=== PATIENT | female | born 1965 | race Caucasian/White ===

== ENCOUNTER → 2023-11-18 07:11 | Outpatient (REF) | payer MEDICARE, OTHER, SELFPAY | LOC: RAD 07:11 | PROVIDERS: ATTENDING PHYSICIAN Otolaryngology Facial Plastic Surgery; FAMILY PHYSICIAN Internal Medicine Rheumatology | DX: J32.0 Chronic maxillary sinusitis (principal) | CPT/HCPCS: 70486 ==

== ENCOUNTER → 2024-04-14 07:21 | Outpatient (REF) | payer MEDICARE, OTHER, SELFPAY | LOC: WDC 07:21 | PROVIDERS: ATTENDING PHYSICIAN Advanced Practice Midwife; FAMILY PHYSICIAN Internal Medicine Rheumatology | DX: Z12.31 Encounter for screening mammogram for malignant neoplasm of breast (principal); Z80.3 Family history of malignant neoplasm of breast | CPT/HCPCS: 77063; 77067 ==

== ENCOUNTER 2024-06-15 13:56 | Emergency (ER) | payer MEDICARE, OTHER, SELFPAY ==
[2024-06-15 14:19] VITALS: BP 127/80
--- NOTE | 2024-06-15 15:56 | ED.GENMED ---
History of Present Illness
General
Chief Complaint: Musculo-Skeletal Complaint
Source: patient
Exam Limitations: none
Time Seen by Provider: 06/15/24 15:32
Nursing documentation reviewed up to this point in time: agreed with
History of Present Illness
History of Present Illness:
Patient is a 58-year-old female with history of SLE presenting to the emergency department for evaluation of left leg injury. Patient states that she was at the hair salon Thursday when she stood up from the chair and proceeded to fall to
the ground. Patient states that she did not lose consciousness or hit her head. Patient states that she has had significant pain in her left ankle following the fall and noticed swelling and bruising. She has been able to bear minimal weight,
although limping. Patient denies any preceding dizziness, lightheadedness, shortness of breath, or chest pain. She states that she has had similar episode in the past which her location and measurement technician does correlate to her lupus flares. Patient denies
sustaining any other injuries in the fall. Patient denies any acute changes in mental status or gait disturbances.
Past History
Past History
ED Past Medical History: Fibromyalgia and Other (Sjogrens syndrome, lupus, Migraines, )
ED Past Surgical History: ( X2 )
Social History
Tobacco: Non-smoker
Alcohol: None
Personal:
Living: with family
Review of Systems
Review of Systems
Allergies reviewed?: Yes
All Other Systems: ROS reviewed and negative except as documented in HPI and ROS
Phy Exam
Physical Exam
Physical Exam:
Vitals: Patient's vital signs are stable. Afebrile
General: Patient is well appearing, no acute distress
Skin: Warm and dry, scattered healing ecchymoses of bilateral lower extremities
Head: Normocephalic, atraumatic. No evidence of trauma
Eyes: Sclera nonicteric. EOMs intact. No nystagmus.
Throat: Protecting airway
Neck: Normal ROM, no cervical spine tenderness, no meningismus. No evidence of
Cardiac: Regular rate and rhythm, no murmurs.
Pulm: Normal respiratory effort, no wheezes, rales, rhonchi heard on exam.
Abdomen: No abdominal tenderness.
Extremities: Edema and ecchymoses of left ankle with tenderness just anterior to left lateral malleolus. Mild tenderness of lateral left foot. No tenderness at base of fifth metatarsal. No tenderness of left medial malleolus or calcaneus.
Achilles intact. Patient has limited ability to plantarflex/dorsiflex left ankle due to discomfort. No tenderness at head of left fibula. No tenderness of left tibia. Patient has full range of motion in left knee with no tenderness or edema.
Patient has palpable distal pulses in left lower extremity with great sensation. Bilateral upper extremities and right lower extremity atraumatic and nontender with full range of motion
Neuro: AAOx3. CN II-XII intact. No focal neurologic deficits.
Psychiatric: Normal affect.
Course
Orders/Labs/Results
Orders:
Orders
06/15/24 14:25
CR Ankle - Left Min 3 Views Urgent
Comment:
Reason For Exam: pain, swelling, bruising
CR Leg Tibia/fibula Left 2 Vw Urgent
Comment:
Reason For Exam: pain, swelling, bruising
Foot, Left 3 View [CR Foot - Left Min 3 Views] Urgent
Comment:
Reason For Exam: pain, swelling, bruising
06/15/24 15:56
Acetaminophen [Tylenol] 650 mg PO NOW STA
06/15/24 16:05
Ibuprofen [Motrin] 600 mg PO NOW STA
06/15/24 16:25
Ortho Boot Left- Treatment ONCE
Short or tall?: Tall
Vital Signs
Initial and Last Documented VS:
Initial Vital Signs
Temp Pulse Resp BP
98.0 F 83 16 127/80
06/15/24 14:19 06/15/24 14:19 06/15/24 14:19 06/15/24 14:19
Last Documented Vital Signs
Temp Pulse Resp BP
98.0 F 83 16 127/80
06/15/24 14:19 06/15/24 14:19 06/15/24 14:19 06/15/24 14:19
MDM/Problems Addressed
Differential Diagnosis Includes:
Not limited to: Ankle sprain, ankle fracture, foot sprain, foot fracture, leg fracture
MDM/Problems Addressed:
58-year-old female presenting with left lower extremity pain following fall 4 days ago. There was no associated head strike or loss of consciousness. Patient with pain in left foot, left ankle, left lower leg. No other complaints. Denies any
acute confusion or gait disturbances. Patient reports location and measurement technician aware of such episodes and states correlated with patient's lupus flares. Vital stable. Exam as above. Patient does have ecchymoses and edema of left ankle, worse around left
lateral malleolus. There is tenderness noted just anterior to left lateral malleolus. No tenderness at base of fifth metatarsal. Achilles intact. Left knee atraumatic and nontender with full range of motion. X-rays of left tibia/fibula, left
foot, and left ankle were obtained in triage. No evidence of acute fracture dislocation. Patient is alert and oriented with fluid speech. Patient has no neurological deficits on exam. No other traumatic injuries noted. Given location of pain
and edema�suspect likely ankle sprain. Given patient's history of sudden fall, not mechanical in nature�did offer lab tests and CT head�which patient declined and states is definitely related to lupus flare.
Will place patient in Ortho boot and refer to Ortho for follow-up needed. Patient will follow closely with rheumatology. Jose SOLANO. Return precaution discussed with patient at length. Patient comfortable with plan and stable for discharge.
Case discussed with attending physician
Chronic conditions affecting care:
SLE
Acute Exacerbation and/or Progression of Chronic Illness:
N/A
*Radiology
Radiology exam reviewed: preliminary read by ED provider and radiology read reviewed
*Pulse Oximetry
Patient hypoxic: no
*EKG
Interpreted by ED Provider?: NA
*Furniture Manager Interpretation
Rate: Furniture Manager- N/A
*Critical Care Note
Total Time (30-74mins, 75-104mins- exclusive of procedures): Not Applicable
ED Attending Note
-
Portions of this chart may have been created with voice recognition software.� Occasional wrong word or��sound alike� substitutions may have occurred due to the inherent limitations of voice recognition software.
Discharge Plan
Departure
Patient Disposition: Home (Routine Discharge)
Date of Disposition: 06/15/24
Time of Disposition: 16:35
Patient with high blood pressure during this ER visit?: No
Condition: Good
Discharge Problem:
Left ankle sprain, Sprain of left foot
Instructions: Ankle Sprain ED, Foot sprain
Prescriptions:
No Action
nabumetone 750 MG tablet
750 mg PO DAILY
baclofen 10 MG tablet
10 mg PO DAILY
folic acid 1 MG tablet
1 mg PO DAILY
hydroxychloroquine 200 MG tablet
200 mg PO DAILY
desipramine 10 MG tablet
10 mg PO DAILY
lutein 20 MG capsule
20 mg PO DAILY
atomoxetine [Strattera] 100 MG capsule
100 mg PO DAILY
linaclotide [Linzess] 290 MCG capsule
290 mcg PO DAILY
ascorbic acid-vitamin E-biotin [Hair, Skin, Nails with Biotin] 1 EACH tablet,chewable
1 ea PO DAILY
ergocalciferol (vitamin D2) 50 MCG capsule
50,000 mcg PO
Patient Comments:
mwf
levofloxacin 500 MG tablet
500 mg PO DAILY Qty: 7 0RF
methotrexate sodium 2.5 MG tablet
2.5 mg PO WEEKLY Qty: 0 0RF
rwxaddaudu-rsaorjqhiucis-kvym 1 TAB tablet
1 tab PO DAILY Qty: 10 0RF
meclizine 25 mg tablet
25 mg PO TID PRN (Reason: dizziness) Qty: 10 0RF
pantoprazole [Protonix] 40 mg tablet,delayed release (DR/EC)
40 mg PO DAILY Qty: 30 0RF
Referrals:
Pino Peace DO [Family Provider] -
Jamie Samuels MD [Active] - Follow up in 1 week
Activity Restrictions/Additional Instructions:
RETURN TO THE EMERGENCY DEPARTMENT WITH ANY HEADACHE, CHEST PAIN, SHORTNESS OF BREATH, DIZZINESS, RECURRENT FALLS, CHANGES IN MENTAL STATUS, NUMBNESS/TINGLING IN LEFT LEG, OR ANY OTHER CONCERNS
-As discussed�it is important to ice and elevate your left ankle as often as possible. Keep left leg in boot and weight-bear as tolerated. You can take Tylenol for any discomfort.
-As discussed�it is important that you follow-up with your location and measurement technician for further evaluation of your lupus.
Monitor your symptoms closely and return to the emergency department with any acute worsening/new symptoms
Interventions
Interventions:
*Risk Screen - Suicide Last Done: 06/15/24 15:31
*General Assessment Last Done: 06/15/24 15:31
*Neglect/Abuse Screening Last Done: 06/15/24 15:31
*ED COVID-19 Vaccine History Last Done: 06/15/24 15:31
*Nursing Disposition Last Done: 06/15/24 17:00
ED-Musculoskeletal Assessment Last Done: 06/15/24 15:33
Discharge Date and Time
Discharge Date/Time: 06/15/24 17:00
Print Language: SCOTTISH
[2024-06-15] MEDS: MOTRIN 600 MG PO (16:12)
== END 2024-06-15 17:00 | disposition home or self-care (01) ==
LOC: EMR 13:56
PROVIDERS: EMERGENCY PHYSICIAN Emergency Medicine; FAMILY PHYSICIAN Internal Medicine Rheumatology
DX: S93.402A Sprain of unspecified ligament of left ankle, initial encounter (principal); S93.602A Unspecified sprain of left foot, initial encounter; S90.02XA Contusion of left ankle, initial encounter; W19.XXXA Unspecified fall, initial encounter; Y92.89 Other specified places as the place of occurrence of the external cause; M32.9 Systemic lupus erythematosus, unspecified; M79.7 Fibromyalgia; M35.00 Sjogren syndrome, unspecified; G43.909 Migraine, unspecified, not intractable, without status migrainosus; Z88.3 Allergy status to other anti-infective agents; Z88.0 Allergy status to penicillin
CPT/HCPCS: 99283; 29515; 73590; 73610; 73630

== ENCOUNTER 2025-03-01 08:20 | Emergency (ER) | payer MEDICARE, OTHER, SELFPAY ==
[2025-03-01 08:25] VITALS: BP 124/83
[2025-03-01] MEDS: PERCOCET 5/325 1 TABLET PO (09:05)
--- NOTE | 2025-03-01 09:05 | ED.SKININJ ---
HPI-Injury
General
Chief Complaint: Bite
Source: patient
Exam Limitations: none
Time Seen by Provider: 03/01/25 08:47
History of Present Illness-Injury
Initial Injury comments:
59yo right hand dominant female with a history of lupus and fibromyalgia presenting with her for evaluation after a dog bite. Patient is dog sitting her son's dog. She gave him a milk bone this morning and pointed to the bone. The dog
thought she was taking the bone away and bit her in the right hand. She came immediately to the ED. She denies any paresthesias. Dog is up to date on rabies vaccinations and she is up to date on Tdap.
Past History
Past History
ED Past Medical History: Fibromyalgia and Other (Sjogrens syndrome, lupus, Migraines, )
ED Past Surgical History: ( X2 )
Social History
Tobacco: Non-smoker
Alcohol: None
Personal:
Living: with family
Phy Exam
General Physical Exam
General Presentation: well appearing and no apparent distress
General Skin: warm and dry
General Habitus: normal
General Mental: alert
ENT Exam
ENT Exam: normocephalic
Pulmonary Exam
Pulmonary Exam: no respiratory distress
Neurological Exam
Neurological Exam: alert
Musculoskeletal Exam
Musculoskeletal Exam: other (R hand: Multiple puncture wounds noted to the palm/thenar eminence. There is a large avulsion type laceration to the dorsal aspect of the hand at the base of the thumb that is unable to be completely closed. ROM of
fingers and wrist intact. 2+ radial pulse and sensation intact. )
Skin Exam
Skin Exam: normal color and warm/dry
Psychiatric Exam
Psychiatric Exam: normal mood/affect
Course
Orders/Labs/Results
Orders:
Orders
03/01/25 09:01
Oxycodone/Acetaminophen [Percocet 5/325] 1 tablet .ROUTE .STK-MED ONE
03/01/25 09:05
Oxycodone/Acetaminophen [Percocet 5/325] 1 tablet PO NOW STA
CR Hand - Right Min 3 Views Urgent
Comment:
Reason For Exam: dog bite
03/01/25 10:14
Doxycycline [Vibramycin] 100 mg PO NOW STA
MetroNIDAZOLE [Flagyl] 500 mg PO NOW STA
Vital Signs
Initial and Last Documented VS:
Initial Vital Signs
Temp Pulse Resp BP Pulse Ox
97.8 F 70 20 124/83 98
03/01/25 08:25 03/01/25 08:25 03/01/25 08:25 03/01/25 08:25 03/01/25 08:25
Last Documented Vital Signs
Temp Pulse Resp BP Pulse Ox
97.8 F 70 20 124/83 98
03/01/25 08:25 03/01/25 08:25 03/01/25 08:25 03/01/25 08:25 03/01/25 08:25
Procedures
Laceration Closure
Right Hand:
Status of Wound: clean
Size of Wound in cm: 6
Description of Wound Edges: ragged
Preparation: cleaned with saline
Anesthesia: 1% Lidocaine with epi
Revision/Debridement: minor revision
Wound exploration: extensive cleaning of contaminated wound and explored to base- no FB
Type of Closure: single layer closure
Skin Closure Material: 4-0 nylon
Number of sutures: 12
Additional information:
3 sutures placed to each of the two puncture wounds of palm. 6 sutures placed to larger laceration at base of thumb.
MDM/Problems Addressed
Differential Diagnosis Includes:
58yoF here after a dog bite to the R hand. Bitten by her son's dog. Animal UTD on shots. On exam, there are multiple puncture wounds with a large avulsion laceration to the dorsum of the hand. ROM intact and hand is neurovascularly intact. No
clinical evidence of tendon injury. Wounds irrigated extensively and repaired as above. Avulsion laceration unable to be completely closed due to the type of injury. Dressing applied. X-rays obtained which are negative for fractures. She was started
on doxycycline and Flagyl for prophylaxis (PCN allergy). Home wound care discussed. Patient advised to have sutures removed in 10-14 days and return to the ED immediately with any signs of infection. Patient discharged in stable condition.
*Critical Care Note
Total Time (30-74mins, 75-104mins- exclusive of procedures): Not Applicable
ED Attending Note
-
Portions of this chart may have been created with voice recognition software.� Occasional wrong word or��sound alike� substitutions may have occurred due to the inherent limitations of voice recognition software.
Discharge Plan
Departure
Patient Disposition: Home (Routine Discharge)
Date of Disposition: 03/01/25
Time of Disposition: 10:14
Patient with high blood pressure during this ER visit?: No
Discharge Problem:
Dog bite of multiple sites of right hand and fingers
Instructions: Animal Bites (DC), Laceration Repair With Stitches (DC)
Prescriptions:
New
doxycycline hyclate 100 mg capsule
100 mg PO BID Qty: 13 0RF
metronidazole 500 mg tablet
500 mg PO Q8H 7 Days Qty: 20 0RF
No Action
nabumetone 750 MG tablet
750 mg PO DAILY
baclofen 10 MG tablet
10 mg PO DAILY
folic acid 1 MG tablet
1 mg PO DAILY
hydroxychloroquine 200 MG tablet
200 mg PO DAILY
desipramine 10 MG tablet
10 mg PO DAILY
lutein 20 MG capsule
20 mg PO DAILY
atomoxetine [Strattera] 100 MG capsule
100 mg PO DAILY
linaclotide [Linzess] 290 MCG capsule
290 mcg PO DAILY
ascorbic acid-vitamin E-biotin [Hair, Skin, Nails with Biotin] 1 EACH tablet,chewable
1 ea PO DAILY
ergocalciferol (vitamin D2) 50 MCG capsule
50,000 mcg PO
Patient Comments:
mwf
levofloxacin 500 MG tablet
500 mg PO DAILY Qty: 7 0RF
methotrexate sodium 2.5 MG tablet
2.5 mg PO WEEKLY Qty: 0 0RF
eesjjlksej-eqghljwotwlvk-yyrd 1 TAB tablet
1 tab PO DAILY Qty: 10 0RF
meclizine 25 mg tablet
25 mg PO TID PRN (Reason: dizziness) Qty: 10 0RF
pantoprazole [Protonix] 40 mg tablet,delayed release (DR/EC)
40 mg PO DAILY Qty: 30 0RF
Referrals:
Jasson Dominguez DO [Family Provider, Family Practice]
Activity Restrictions/Additional Instructions:
Take antibiotics as prescribed. Change dressings daily and keep wound clean/dry.
Sutures need to be removed in 10-14 days. Return to the ER sooner with any signs of infection (redness, warmth, drainage, fevers).
Interventions
Interventions:
*Risk Screen - Suicide Last Done: 03/01/25 08:25
*General Assessment Last Done: 03/01/25 08:25
*Neglect/Abuse Screening Last Done: 03/01/25 08:25
*ED- Fall Risk Assessment Last Done: 03/01/25 08:58
*ED COVID-19 Vaccine History Last Done: 03/01/25 08:58
*Nursing Disposition Last Done: 03/01/25 10:36
ED-Skin Assessment Last Done: 03/01/25 08:55
Discharge Date and Time
Discharge Date/Time: 03/01/25 10:37
Print Language: ARABIC
[2025-03-01] MEDS: VIBRAMYCIN 100 MG PO (10:29)
[2025-03-01] MEDS: FLAGYL 500 MG PO (10:30)
== END 2025-03-01 10:37 | disposition home or self-care (01) ==
LOC: EMR 08:20
PROVIDERS: EMERGENCY PHYSICIAN Emergency Medicine; FAMILY PHYSICIAN Family Medicine
DX: S61.259A Open bite of unspecified finger without damage to nail, initial encounter (principal); S61.451A Open bite of right hand, initial encounter; W54.0XXA Bitten by dog, initial encounter; M32.9 Systemic lupus erythematosus, unspecified; M35.00 Sjogren syndrome, unspecified; M79.7 Fibromyalgia
CPT/HCPCS: 99283; 12002; 73130

== ENCOUNTER 2025-03-17 08:03 | Emergency (ER) | payer MEDICARE, OTHER, SELFPAY ==
[2025-03-17 08:04] VITALS: BP 130/80
--- NOTE | 2025-03-17 08:53 | ED.GENMED ---
History of Present Illness
General
Chief Complaint: Wound Check/Suture Removal
Source: patient
Exam Limitations: none
Time Seen by Provider: 03/17/25 08:07
Nursing documentation reviewed up to this point in time: agreed with
History of Present Illness
History of Present Illness:
Patient is a 59-year-old female presents to the ER to have sutures removed from right hand. Patient was here March 01 after sustaining a dog bite. Patient completed all antibiotics denies any redness fever chills. Pain has been gradually
improving. She does complain of mild persistent numbness.
Past History
Past History
ED Past Medical History: Fibromyalgia and Other (Sjogrens syndrome, lupus, Migraines, )
ED Past Surgical History: ( X2 )
Social History
Tobacco: Non-smoker
Alcohol: None
Personal:
Living: with family
Review of Systems
Review of Systems
Allergies reviewed?: Yes
All Other Systems: ROS reviewed and negative except as documented in HPI and ROS
Phy Exam
General Physical Exam
General Presentation: no apparent distress
General age: appears stated age
General Skin: warm and dry
General Habitus: normal
General Mental: alert
General Hydration: appears well hydrated
Neurological Exam
Neurological Exam: alert and oriented x3
Musculoskeletal Exam
Musculoskeletal Exam: other (Right upper extremity strong pulses patient with sutures intact to the volar aspect right hand, 3 separate incisions appear well without evidence of infection no wound dehiscence no surrounding erythema or drainage
sutures intact)
Skin Exam
Skin Exam: normal color and warm/dry
Psychiatric Exam
Psychiatric Exam: normal mood/affect
Course
Vital Signs
Initial and Last Documented VS:
Initial Vital Signs
Temp Pulse Resp BP Pulse Ox
98.4 F 76 18 130/80 94
03/17/25 08:04 03/17/25 08:04 03/17/25 08:04 03/17/25 08:04 03/17/25 08:04
Last Documented Vital Signs
Temp Pulse Resp BP Pulse Ox
98.4 F 76 18 130/80 94
03/17/25 08:04 03/17/25 08:04 03/17/25 08:04 03/17/25 08:04 03/17/25 08:04
Procedures
Other
Indication for procedure:: Suture removal
Procedure completed by: Myself
Additional Procedure:
Patient with 3 separate lacerations to the volar aspect of the right hand a total of 12 sutures were removed (2 small lacerations with 3 sutures each and 1 separate laceration with [address]) all successfully removed with no wound dehiscence
MDM/Problems Addressed
Differential Diagnosis Includes:
Not limited to suture removal
MDM/Problems Addressed:
Patient is a 59-year-old female here for suture removal. Patient sustained a dog bite to her 11th presented with sutures in place. Wound is healing without evidence of infection minimal persistent numbness. Will DC with hand referral if needed.
Wound care reviewed.
*Pulse Oximetry
SaO2: 94
Oxygen Mode of Delivery: Room air
Patient hypoxic: no
*Critical Care Note
Total Time (30-74mins, 75-104mins- exclusive of procedures): Not Applicable
ED Attending Note
-
Portions of this chart may have been created with voice recognition software.� Occasional wrong word or��sound alike� substitutions may have occurred due to the inherent limitations of voice recognition software.
Discharge Plan
Departure
Patient Disposition: Home (Routine Discharge)
Date of Disposition: 03/17/25
Time of Disposition: 08:56
Patient with high blood pressure during this ER visit?: Yes
Condition: Fair
Covid-19: Not Applicable
Discharge Problem:
suture removal
Instructions: Stitches and cyndi, BLOOD PRESSURE
Prescriptions:
No Action
nabumetone 750 MG tablet
750 mg PO DAILY
baclofen 10 MG tablet
10 mg PO DAILY
folic acid 1 MG tablet
1 mg PO DAILY
hydroxychloroquine 200 MG tablet
200 mg PO DAILY
desipramine 10 MG tablet
10 mg PO DAILY
lutein 20 MG capsule
20 mg PO DAILY
atomoxetine [Strattera] 100 MG capsule
100 mg PO DAILY
linaclotide [Linzess] 290 MCG capsule
290 mcg PO DAILY
ascorbic acid-vitamin E-biotin [Hair, Skin, Nails with Biotin] 1 EACH tablet,chewable
1 ea PO DAILY
ergocalciferol (vitamin D2) 50 MCG capsule
50,000 mcg PO
Patient Comments:
mwf
levofloxacin 500 MG tablet
500 mg PO DAILY Qty: 7 0RF
methotrexate sodium 2.5 MG tablet
2.5 mg PO WEEKLY Qty: 0 0RF
mgonqkbomp-bledgqjnagdcj-xjid 1 TAB tablet
1 tab PO DAILY Qty: 10 0RF
meclizine 25 mg tablet
25 mg PO TID PRN (Reason: dizziness) Qty: 10 0RF
pantoprazole [Protonix] 40 mg tablet,delayed release (DR/EC)
40 mg PO DAILY Qty: 30 0RF
doxycycline hyclate 100 mg capsule
100 mg PO BID Qty: 13 0RF
metronidazole 500 mg tablet
500 mg PO Q8H 7 Days Qty: 20 0RF
Referrals:
Jasson Dominguez DO [Family Provider, Family Practice]
Jamie Samuels MD [Active, Orthopedics]
Activity Restrictions/Additional Instructions:
As discussed continue to wash with soap and water pat dry you may apply small layer of antibiotic ointment.
You may allow some air to the area as discussed
Follow-up with hand surgeon as needed return if any worsening of symptoms
Interventions
Interventions:
*Risk Screen - Suicide Last Done: 03/17/25 08:13
*General Assessment Last Done: 03/17/25 08:04
*Neglect/Abuse Screening Last Done: 03/17/25 08:04
*ED- Fall Risk Assessment Last Done: 03/17/25 08:13
ED-Skin Assessment Last Done: 03/17/25 08:13
Discharge Date and Time
Print Language: BELARUSIAN
== END 2025-03-17 09:22 | disposition home or self-care (01) ==
LOC: EMR 08:03
PROVIDERS: EMERGENCY PHYSICIAN Emergency Medicine; FAMILY PHYSICIAN Family Medicine
DX: Z48.02 Encounter for removal of sutures (principal); M79.7 Fibromyalgia; M35.00 Sjogren syndrome, unspecified
CPT/HCPCS: 99281

== ENCOUNTER 2025-04-17 10:13 | Outpatient (RCR) | payer MEDICARE, OTHER, SELFPAY | END 2025-04-18 14:34 | disposition home or self-care (01) | LOC: ROT 10:13 | PROVIDERS: ATTENDING PHYSICIAN Family Medicine | DX: S61.411D Laceration without foreign body of right hand, subsequent encounter (principal); Z73.6 Limitation of activities due to disability; R20.0 Anesthesia of skin; R20.2 Paresthesia of skin; M25.641 Stiffness of right hand, not elsewhere classified; W54.0XXD Bitten by dog, subsequent encounter | CPT/HCPCS: 97010; 97022; 97110; 97166; 97530; 97535 ==

== ENCOUNTER → 2025-05-15 14:32 | Outpatient (REF) | payer MEDICARE, OTHER, SELFPAY | LOC: WDC 14:32 | PROVIDERS: ATTENDING PHYSICIAN Advanced Practice Midwife; FAMILY PHYSICIAN Family Medicine | DX: Z12.31 Encounter for screening mammogram for malignant neoplasm of breast (principal); Z80.3 Family history of malignant neoplasm of breast | CPT/HCPCS: 77063; 77067 ==